=== PATIENT | male | born 1960 | race Caucasian/White ===

== ENCOUNTER 2016-08-19 10:11 | Observation (INO) | payer OTHER ==
[~2016-08-19] VITALS: Ht 162.6 cm; Wt 86.0 kg
[~2016-08-19 10:11] MED LIST: AMOX875T PO; ASPI81TA28 PO; ATOR-14 PO; AZIT250T4 PO; CYAN250T PO; EPP3 IM; HYDR-5688 PO; MODA100T17 PO; NITR0.4S UT; OMEG10007 PO; PRED10TA PO
[2016-08-19 11:16] LABS: HEMATOCRIT 44.2 % (42-52); MEAN CELL VOLUME 88.8 fL (80-100); MEAN CORPUSCULAR HEMOGLOBIN 30.7 pg (25-34); MEAN CORPUSCULAR HGB CONC 34.6 g/dl (32-36); MEAN PLATELET VOLUME 11.3 fL (7.4-10.4); PLATELET COUNT 174 K/uL (130-400); RED BLOOD COUNT 4.98 M/uL (4.7-6.1); WHITE BLOOD COUNT 6.56 K/uL (4.8-10.8)
--- NOTE | 2016-08-19 11:17 | DIAGNOSTIC IMAGING REPORT ---
CHEST ONE VIEW PORTABLE CLINICAL HISTORY: Atypical chest pain COMPARISON STUDY: 11/30/2013 FINDINGS: The cardiac and mediastinal contours are normal. There is no evidence of focal pulmonary consolidation. There is no evidence of failure. No pleural effusions are visualized.[ IMPRESSION: No active disease in the chest. Electronically signed by: Estuardo Reyes M.D. 08/19/2016 11:15 AM Dictated Date/Time: 08/19/2016 11:15 AM
[2016-08-19 11:26] LABS: BUN/CREATININE RATIO 23.8 (10-20); CALCIUM 8.7 mg/dl (8.5-10.1); CREATININE 0.79 mg/dl (0.60-1.40); POTASSIUM 4.4 mmol/L (3.5-5.1)
[2016-08-19 11:31] LABS: ALB/GLOB RATIO 1.1 (0.9-2); CKMB/CK RATIO 2.4 (0-3.0)
[2016-08-19 11:36] LABS: INR 0.9 (0.9-1.1); PROTHROMBIN TIME (PATIENT) 9.6 SECONDS (9.0-12.0)
[2016-08-19] MEDS ORDERED: ATOR10TA88 PO (11:40)
[2016-08-19] MEDS ORDERED: EPP3/2 IM (11:41)
[2016-08-19] MEDS ORDERED: AZITTAB PO (11:42)
[2016-08-19] MEDS ORDERED: PANT40TA PO (11:45)
[2016-08-19] MEDS ORDERED: NITROGLYCERIN 0.4 MG SL PER TAB CHARGE SL PRN (14:30)
[2016-08-19] MEDS ORDERED: ALUMINUM/MAGNESIUM/SIMETH (MAALOX MAX) 30 ML UDC PO PRN (14:30)
[2016-08-19] MEDS ORDERED: ONDANSETRON INJ 2 MG/ML 2 ML VIAL IV PRN (14:30)
[2016-08-19] MEDS ORDERED: EPINEPHRINE ADULT AUTO-INJECT 0.3 MG SYR IM PRN (14:30)
[2016-08-19] MEDS ORDERED: ACETAMINOPHEN 325 MG TAB PO PRN (14:30)
[2016-08-19] MEDS ORDERED: NITROGLYCERIN 0.4 MG SL PER TAB CHARGE UT SCH (14:30)
[2016-08-19] MEDS ORDERED: MoRPHine SULFATE 2 MG/ML CARP IV PRN (14:30)
[2016-08-19] MEDS ORDERED: ATV/1 PO (14:40)
[2016-08-19] MEDS ORDERED: CARV3.122 PO (14:40)
[2016-08-19] MEDS ORDERED: ATOR-22 PO (14:40)
[2016-08-19] MEDS ORDERED: LISI-461 PO (14:40)
[2016-08-19] MEDS ORDERED: LORAZEPAM 1 MG TAB PO PRN (14:45)
[2016-08-19] MEDS ORDERED: IV FLUIDS COMPLETED PRN (15:15)
--- NOTE | 2016-08-19 15:29 | HISTORY & PHYSICAL EXAMINATION ---
DATE OF ADMISSION: 08/19/2016 CHIEF COMPLAINT: Chest pain. HISTORY OF PRESENT ILLNESS: This is a 56-year-old male with past medical history significant for non-ST elevated ID status post stents, history of COPD, tobacco abuse, lung nodules, narcolepsy without cataplexy, history of colon polyps, history of hypertension, hyperlipidemia, history of Pjptlqs-Bkypo-Wabns disease presents with chest pain. The patient says he is not following with doctors. He has not seen a doctor since more than 1 year and he ran out of medications and is not taking those medications. Last night he had some heartburn kind of symptoms, 2 episodes and he went to his family doctor and she was advised to come to the ER. In the ER, EKG shows sinus bradycardia, currently the patient has no chest pain or no heartburn kind of symptoms. Denies any shortness of breath, has dry cough once in a while. No headaches, no blurred vision, no nausea, no vomiting, no dizziness, no sweating. Normal bowel and bladder movements. Appetite is okay. The patient currently is working in [employer] and he walked quite a bit and even after walking and climbing couple of stairs or steps, he did not have any chest pain or shortness of breath. ALLERGIES: AUGMENTIN, BEE VENOM, PENICILLIN G, ADHESIVE TAPE, CHANTIX, PLAVIX, METOPROLOL, CAUSES LOWER HEART RATE, ZOCOR CAUSES MUSCLE PAIN. PAST SURGICAL HISTORY: Carpal tunnel surgery, cardiac catheterization with stent to LAD and a knee surgery. MEDICATIONS: The patient is currently on Provigil 100 mg p.o. daily, lisinopril 10 mg p.o. daily, Coreg 3.125 mg p.o. b.i.d., atorvastatin 20 mg p.o. daily, prednisone rescue kit, azithromycin rescue kit, epinephrine for severe allergic reaction, Protonix 40 mg p.o. daily, nitroglycerin 0.4 mg sublingual p.r.n., aspirin 81 mg p.o. daily, Ativan 1 mg p.o. t.i.d. p.r.n., vitamin B12 250 mcg p.o. daily, omega-3 1000 mg p.o. daily. FAMILY HISTORY: Significant for mother had pancreatic cancer, at the age of 55. Father had MIs in his 70's. Brother had musculoskeletal disorder. Sister has musculoskeletal disorder. SOCIAL HISTORY: Smokes half pack a day for last 35 years. Alcohol occasional. No drug use. REVIEW OF SYMPTOMS: As per HPI. Rest of review of symptoms negative. PHYSICAL EXAMINATION: GENERAL: The patient is of moderate build, not in distress. VITAL SIGNS: Temperature 37, pulse 56, respiratory rate 18, blood pressure 157/100, oxygen 95% room air. HEENT: No pallor, no icterus. Pupils equal, round, and reactive to light. NECK: No JVD, no neck masses, no carotid bruits. CARDIOVASCULAR: S1, S2 heard, regular rate and rhythm, no murmur, no gallop. RESPIRATORY SYSTEM: Normal AP diameter. No accessory muscle use. No wheezing, no crackles. ABDOMEN: Soft, bowel sounds present. Nontender. No distention. CENTRAL NERVOUS SYSTEM: Cranial nerves II-XII grossly intact. Nonfocal. EXTREMITIES: No edema. LABORATORY DATA: WBC 6.5, hemoglobin 15.3, hematocrit 44.2, platelets 174. Sodium 142, potassium 4.4, chloride 106, bicarbonate 27, BUN 19, creatinine 0.7. Serum glucose 93, calcium 8.7, total bilirubin 0.6, AST 18, ALT 36, alkaline phosphatase 75, total creatinine kinase 22. Troponin I less than 0.015. PT 10.6, INR 0.9, IMAGING DATA: Chest x-ray: No acute disease in the chest. EKG: Sinus bradycardia with a rate of 55. No acute ST changes seen. ASSESSMENT AND PLAN: This is a 56-year-old male who presents with chest pain. 1. Chest pain, heartburn kind of symptoms, got resolved now. History of coronary artery disease status post stents, not following with doctors for a long time and ran out of the medications. We will continue his home medications. We will follow serial cardiac enzymes, repeat EKG in the a.m. and follow echocardiogram and cardiology consult for possible stress testing. Monitor on tele floor. 3. History of hypertension. On Coreg and lisinopril. His heart rate is running on the lower side. We will monitor the heart rate while he is on Coreg. Will monitor his blood pressure. 4. History of narcolepsy without cataplexy. Continue his Provigil. 5. History of hyperlipidemia. Continue statin. Follow fasting lipid profile. 6. History of mild chronic obstructive pulmonary disease and tobacco abuse. Currently, stable. 7. Gastroesophageal reflux disease. Continue Protonix. 8. History of lung nodules. Follows with family doctor. 9. Deep vein thrombosis prophylaxis, sequential compression devices and TEDs. 10. Disposition: Observation tele floor. Expect to discharge home and follow with his family doctor. Level 1 full code. MTDD
[2016-08-19 17:34] VITALS: BP 143/93; PULSE 55; TEMP 37; O2SAT 98
[2016-08-19] MEDS: NICOTINE 21 MG/24 HR TDSY TD SCH (17:45)
[2016-08-19] MEDS ORDERED: LISINOPRIL 5 MG TAB PO ONE (17:45)
--- NOTE | 2016-08-19 18:21 | EMERGENCY ROOM VISIT NOTE ---
History Report prepared by Ferny: Tuyet Koenig Under the Supervision of: Dr. Crispin Burns M.D. First contact with patient: 11:27 Chief Complaint: CARDIAC ASSESSMENT Stated Complaint: REFERRED BY DR. BEAN AT [facility] [place] Nursing Triage Summary: Pt states he was sent to ED by her Dr for EKG changes. Pt states he was at Dr for check up to have meds renewed. Pt c/o indigestion, mid epigastric area since last night. Denies CP, denies pain. History of Present Illness The patient is a 56 year old male who presents to the Emergency Room with complaints of intermittent chest pain which started last night. He reports that he went to see Dr. Bean today who referred the patient to the ED for a cardiac assessment. He states that last night when the pain began, he believed it might be indigestion or heartburn. He reports that the pain would come back when he ate food and go away when he drank liquids. He states that he has had multiple heart catheterizations and stents placed. He reports that the pain is similar to his previous chest pain which indicated cardiac issues. He follows up with Dr. Linn of cardiology. He takes baby aspirin and took one UMBRELLA TIPPER MACHINE. Pt denies LOC, headache, fevers, chills, diaphoresis, visual changes, neck pain, breathing difficulties, nausea, vomiting, abdominal pain, back pain, melena, hematochezia, urinary symptoms, numbness, weakness, lymphadenopathy, rash, or other complaints. Source of History: patient Onset: last night Position: chest Timing: intermittent Modifying Factors (Worsening): eating Modifying Factors (Relieving): drinking Review of Systems See HPI for pertinent positives and negatives. A total of ten systems were reviewed and were otherwise negative. Past Medical & Surgical Medical Problems: (1) Acquired hypothyroidism (2) Allergic reaction to bee sting (3) Carpal tunnel syndrome (4) Odrngkk-Rkigp-Xaaiy disease (5) Chest pain (6) Coronary artery disease (7) Hyperlipidemia (8) MYALGIA AND MYOSITIS NOS (9) Placement of stent in coronary artery (10) Tobacco user Family History Cancer Diabetes mellitus Heart disease Hypertension Kidney stones Social History Smoking Status: Current Every Day Smoker Alcohol Use: occasionally Marital Status: Housing Status: lives with family Occupation Status: employed Current/Historical Medications Scheduled Aspirin (Aspirin Ec), 81 MG PO DAILY Atorvastatin (Lipitor), 20 MG PO DAILY Carvedilol (Coreg), 3.125 MG PO BID Cyanocobalamin (Vitamin B-12), 250 MCG PO QAM Fish Oil (Houston-3), 1 CAP PO QAM Lisinopril (Lisinopril), 10 MG PO DAILY Modafinil (Provigil), 100 MG PO DAILY Nitroglycerin (Nitrostat), 0.4 MG UT PRN Pantoprazole (Protonix), 40 MG PO DAILY Prednisone (Prednisone), 10 MG PO UD Scheduled PRN Azithromycin (Zithromax Z-Gareth), 1 PKT PO UD PRN for RESCUE PACK Epinephrine (Epipen), 0.3 MG IM UD PRN for BEE STINGS Lorazepam (Ativan), 1 MG PO TID PRN for Anxiety Allergies Coded Allergies: Adhesives (Verified Allergy, Intermediate, HIVES, 08/19/16) Varenicline (Verified Allergy, Intermediate, PERSONALITY CHANGES, 08/19/16) Clopidogrel (Verified Allergy, Mild, 08/19/16) BEE STING (Verified Allergy, Unknown, 08/19/16) Metoprolol (Verified Allergy, Unknown, LOW HEART RATE, 08/19/16) Simvastatin (Verified Adverse Reaction, Unknown, MUSCLE ACHES JOINT PAIN, 08/19/16) Physical Exam Vital Signs Date Time Temp Pulse Resp B/P Pulse Ox O2 Delivery O2 Flow Rate FiO2 08/19/16 13:45 56 18 157/100 95 Room Air 08/19/16 12:06 51 18 152/91 96 Room Air 08/19/16 10:35 50 08/19/16 10:27 95 Room Air 08/19/16 10:21 98 08/19/16 10:17 37.0 55 16 190/108 98 Room Air Physical Exam GENERAL: Awake, alert, well-appearing, in no distress HENT: Normocephalic, atraumatic. Oropharynx unremarkable. EYES: Normal conjunctiva. Sclera non-icteric. NECK: Supple. No nuchal rigidity. FROM. No JVD. RESPIRATORY: Clear to auscultation. CARDIAC: Bradycardic rate, normal rhythm. Extremities warm and well perfused. Pulses equal. ABDOMEN: Soft, non-distended. No tenderness to palpation. No rebound or guarding. No masses. RECTAL: Deferred. MUSCULOSKELETAL: Chest examination reveals no tenderness. The back is symmetrical on inspection without obvious abnormality. There is no CVA tenderness to palpation. No joint edema. LOWER EXTREMITIES: Calves are equal size bilaterally and non-tender. No edema. No discoloration. NEURO: Normal sensorium. No sensory or motor deficits noted. SKIN: No rash or jaundice noted. Medical Decision & Procedures ER Provider Diagnostic Interpretation: Radiology results as stated below per my review and radiologist interpretation. CHEST ONE VIEW PORTABLE CLINICAL HISTORY: Atypical chest pain COMPARISON STUDY: 11/30/2013 FINDINGS: The cardiac and mediastinal contours are normal. There is no evidence of focal pulmonary consolidation. There is no evidence of failure. No pleural effusions are visualized.[ IMPRESSION: No active disease in the chest. Electronically signed by: Estuardo Reyes M.D. 08/19/2016 11:15 AM Laboratory Results 08/19/16 10:45 08/19/16 10:45 Test 08/19/16 10:45 Red Blood Count 4.98 M/uL (4.7-6.1) Mean Corpuscular Volume 88.8 fL (80-100) Mean Corpuscular Hemoglobin 30.7 pg (25-34) Mean Corpuscular Hemoglobin Concent 34.6 g/dl (32-36) RDW Standard Deviation 39.1 fL (36.4-46.3) RDW Coefficient of Variation 12.2 % (11.5-14.5) Mean Platelet Volume 11.3 fL (7.4-10.4) Prothrombin Time 9.6 SECONDS (9.0-12.0) Prothromb Time International Ratio 0.9 (0.9-1.1) Activated Partial Thromboplast Time 24.8 SECONDS (21.0-31.0) Partial Thromboplastin Ratio 1.0 Anion Gap 9.0 mmol/L (3-11) Est Creatinine Clear Calc Drug Dose 107.3 ml/min Estimated GFR () 118.0 Estimated GFR (Non- 101.8 BUN/Creatinine Ratio 23.8 (10-20) Calcium Level 8.7 mg/dl (8.5-10.1) Total Bilirubin 0.6 mg/dl (0.2-1) Aspartate Amino Transf (AST/SGOT) 18 U/L (15-37) Alanine Aminotransferase (ALT/SGPT) 36 U/L (12-78) Alkaline Phosphatase 75 U/L (45-117) Total Creatine Kinase 222 U/L (39-308) Creatine Kinase MB 5.3 ng/ml (0.5-3.6) Creatine Kinase MB Ratio 2.4 (0-3.0) Troponin I < 0.015 ng/ml (0-0.045) Total Protein 7.1 gm/dl (6.4-8.2) Albumin 3.7 gm/dl (3.4-5.0) Globulin 3.4 gm/dl (2.5-4.0) Albumin/Globulin Ratio 1.1 (0.9-2) Laboratory results reviewed by me ECG Indication: chest pain Rate (beats per minute): 58 Rhythm: sinus bradycardia Findings: no acute ischemic change, no ectopy Comparison ECG Date: Earlier today Change: Sinus bradycardia, rate 51. No ichemia, no ectopy. ED Course 1140: The patient was evaluated in room B8. A complete history and physical exam was performed. 1321: I discussed the patient's case with Dr. Lalo Long Cardiology. He would like to further evaluate the patient for management. 1324: I discussed the patient's case with Dr. Leisa Ahmadi [facility] [place] hospitalist. 1330: Upon reexamination, the patient was resting comfortably. I discussed the test results and treatment plan with him. The patient will be evaluated for further management. Medical Decision Triage Nursing notes reviewed. The patient's presentation and history were concerning for chest pain. Etiologies such as cardiac ischemia, aortic dissection, pulmonary embolism, pneumonia, pneumothorax, musculoskeletal, infections, gastrointestinal, as well as others were entertained. The patient was evaluated. He was feeling well. He is a some dramatic. His CBC, chemistry panel, LFTs and lipase were negative. The patient's troponin was negative. CK MB was mildly elevated. The patient had taken aspirin already today. I did discuss the case with Dr. May of cardiology. He recommended admission to the hospitalist service for further cardiac workup. I discussed this with the patient. He was in agreement. Hospitalist was contacted and evaluated the patient in the emergency from for her management. The chart was completed utilizing [employer] voice recognition software. Grammatical errors, random word insertions, pronoun errors, and incomplete sentences are an occasional consequence of this system due to software limitations, ambient noise, and hardware issues. Any formal questions or concerns about the content, text, or information contained within the body of this dictation should be directly addressed to the physician for clarification. Consults Time Called: 1312 Consulting Physician: Dr. Lalo Long Cardiology Returned Call: 1321 We discussed the patient's case. He would like to further evaluate the patient for management. Additional Consults: Time Called: 1320 Consulted Physician: Dr. Leisa KISER hospitalist. Returned Call: 1324 Additional Comments: We discussed the patient's case. The patient will be evaluated for further management. Impression Primary Impression: Chest pain, precordial Scribe Attestation The scribe's documentation has been prepared under my direction and personally reviewed by me in its entirety. I confirm that the note above accurately reflects all work, treatment, procedures, and medical decision making performed by me. Departure Information Dispostion Being Evaluated By Hospitalist Prescriptions Lorazepam (ATIVAN) 1 Mg Tab 1 MG PO TID Y for Anxiety, #20 TAB Prov: Jovany De La Fuente MD 08/19/16 Atorvastatin (Lipitor) 20 Mg Tab 20 MG PO DAILY for 30 Days, #30 TAB Prov: Jovany De La Fuente MD 08/19/16 Carvedilol (COREG) 3.125 Mg Tab 3.125 MG PO BID for 30 Days, #60 TAB Prov: Jovany De La Fuente MD 08/19/16 Lisinopril (Lisinopril) 10 Mg Tab 10 MG PO DAILY, #30 Prov: Jovany De La Fuente MD 08/19/16 Referrals Chelsy Bean DO (PCP) Patient Instructions My [facility]
[2016-08-19 18:23] VITALS: BP 143/93; PULSE 55; TEMP 37; O2SAT 98; Ht 162.6 cm; Wt 86.0 kg
[2016-08-19 19:38] VITALS: BP 153/85; PULSE 53; TEMP 36.8; O2SAT 95
[2016-08-19] MEDS: CARVEDILOL 3.125 MG TAB PO SCH (20:31)
[2016-08-19 23:15] VITALS: BP 119/74; PULSE 45; TEMP 36.6; O2SAT 95
[2016-08-20 04:00] VITALS: BP 116/75; PULSE 51; TEMP 36.4; O2SAT 92
[2016-08-20 05:48] LABS: BASO % 0.5 %; BASO ABS # 0.03 K/uL (0-0.2); COMPLETE YES; EOS % 2.2 %; HEMATOCRIT 43.4 % (42-52); IG% 0.5 %; LYMPH % 35.7 %; LYMPH ABS # 2.25 K/uL (1.2-3.4); MEAN CELL VOLUME 88.9 fL (80-100); MEAN CORPUSCULAR HEMOGLOBIN 30.5 pg (25-34); MEAN CORPUSCULAR HGB CONC 34.3 g/dl (32-36); MEAN PLATELET VOLUME 11.4 fL (7.4-10.4); MONO % 5.9 %; NEUT % 55.2 %; PLATELET COUNT 160 K/uL (130-400); RED BLOOD COUNT 4.88 M/uL (4.7-6.1); WHITE BLOOD COUNT 6.31 K/uL (4.8-10.8)
[2016-08-20 06:22] LABS: BUN/CREATININE RATIO 29.8 (10-20); CALCIUM 8.7 mg/dl (8.5-10.1); CREATININE 0.79 mg/dl (0.60-1.40); MAGNESIUM 2.2 mg/dl (1.8-2.4); POTASSIUM 4.3 mmol/L (3.5-5.1)
[2016-08-20 06:47] LABS: ESTIMATED AVERAGE GLUCOSE 111 mg/dl; HA1C FLAG Normal (Normal)
[2016-08-20 07:27] VITALS: BP 118/75; PULSE 54; TEMP 36.4; O2SAT 98
[2016-08-20] MEDS: CARVEDILOL 3.125 MG TAB PO SCH (08:17)
[2016-08-20] MEDS: NICOTINE 21 MG/24 HR TDSY TD SCH (08:24)
[2016-08-20] MEDS ORDERED: PANTOprazole SOD 40 MG TAB PO SCH (09:00)
[2016-08-20] MEDS ORDERED: MODAFINIL 100 MG TAB PO SCH (09:00)
[2016-08-20] MEDS ORDERED: CYANOCOBALAMIN 500 MCG TAB (VIT B-12) PO SCH (09:00)
[2016-08-20] MEDS ORDERED: LISINOPRIL 10 MG TAB PO SCH (09:00)
[2016-08-20] MEDS ORDERED: ATORVASTATIN 20 MG TAB PO SCH (09:00)
[2016-08-20] MEDS ORDERED: ASPIRIN 81 MG ECTAB PO SCH (09:00)
[2016-08-20] MEDS ORDERED: PERFLUTREN LIPID MICROSPHERE (DEFINITY) IV ONE ×2 (09:27→10:35)
--- NOTE | 2016-08-20 11:45 | ECHOCARDIOGRAM REPORT ---
*NOTICE TO RECEIVING REPUBLICAN AGENCY This information is strictly Confidential and protected under [place] law. [place] law prohibits you from making any further disclosure of this information unless further disclosure is expressly permitted by the written consent of the person to whom it pertains or is authorized by law. A general authorization for the release of medical or other information is not sufficient for this purpose. Hospital accepts no responsibility if the information is made available to any other person, INCLUDING THE PATIENT. Interpretation Summary * Name: MEGHANA SMITH Study Date: 08/20/2016 08:45 AM BP: 118/75 mmHg * Patient Location: [id number] HR: 54 * : 1960 (M/d/yyyy) Gender: Male Height: 64 in * Age: 56 yrs Ethnicity: [place] Weight: 195 lb * Ordering Physician: Saúl May * Referring Physician: Self, Referred * Performed By: Alexander Martin RCS * * Reason For Study: Chest Pain * BSA: 1.9 m2 * -- Conclusions -- * The left ventricular wall motion is normal. * There is borderline concentric left ventricular hypertrophy. * The LV Ejection Fraction = 60-65%. * There is no significant valvular pathology. * Diastolic dysfunction, Grade II (pseudonormalization pattern). Procedure Details * A complete two-dimensional transthoracic echocardiogram was performed (2D, M-mode, Doppler and color flow Doppler). * A contrast injection of Definity was performed to improve assessment of LV function. * Contrast was injected into an intravenous site in the left arm. * One vial of Definity ultrasound contrast was diluted in normal saline to a total volume of 10 ml. A total of '2' ml of solution was administered during imaging. * Lot # [id number] of Definity utilized for procedure. * Expiration date . * The attending nurse who injected the contrast agent was John Lopez RN. Left Ventricle * The left ventricle is normal in size. * There is borderline concentric left ventricular hypertrophy. * Left ventricular systolic function is normal. * Ejection Fraction = 60-65%. * The left ventricular wall motion is normal. Right Ventricle * The right ventricle is normal size. * The right ventricular systolic function is normal as assessed by tricuspid annular plane systolic excursion (TAPSE) (normal >1.5 cm). Atria * The left atrial size is normal. * Right atrial size is normal. * There is no evidence of atrial septal defect, but resolution does not allow assessment for a patent foramen ovale. Mitral Valve * The mitral valve is normal. * There is no mitral valve stenosis. * Significant mitral regurgitation is absent. Tricuspid Valve * The tricuspid valve is normal. * There is no tricuspid stenosis. * Significant tricuspid regurgitation is absent. Aortic Valve * The aortic valve is trileaflet. * Aortic stenosis is absent. * There is no significant aortic regurgitation. Pulmonic Valve * The pulmonary valve is not well seen, but the Doppler examination is normal without significant regurgitation or stenosis. Great Vessels * The aortic root and proximal ascending aorta are normal sized. Pericardium/Pleural * There is no pericardial effusion. Great Vessels * Normal inferior vena cava diameter and respiratory variation suggests normal central venous pressure. Left Ventricular Diastolic Function * Diastolic dysfunction, Grade II (pseudonormalization pattern). MMode 2D Measurements and Calculations IVSd 1.1 cm IVSs 1.4 cm LVIDd 5.2 cm LVIDs 2.4 cm LVPWd 1.1 cm LVPWs 1.5 cm IVS/LVPW 0.98 FS 53.8 % EDV(Teich) 127.5 ml ESV(Teich) 19.9 ml EF(Teich) 84.4 % EDV(cubed) 137.8 ml ESV(cubed) 13.6 ml EF(cubed) 90.1 % % IVS thick 29.8 % % LVPW thick 30.3 % LV mass(C)d 225.5 grams LV mass(C)dI 116.5 grams/m\S\2 LV mass(C)s 114.3 grams LV mass(C)sI 59.1 grams/m\S\2 CO(Teich) 5.6 l/min CI(Teich) 2.9 l/min/m\S\2 SV(Teich) 107.6 ml SI(Teich) 55.6 ml/m\S\2 CO(cubed) 6.5 l/min CI(cubed) 3.3 l/min/m\S\2 SV(cubed) 124.1 ml SI(cubed) 64.2 ml/m\S\2 Ao root diam 3.6 cm Ao root area 10.0 cm\S\2 ACS 1.8 cm LA dimension 3.8 cm LA/Ao 1.1 LVAd ap4 34.7 cm\S\2 LVLd ap4 8.5 cm EDV(MOD-sp4) 117.0 ml LVAs ap4 16.8 cm\S\2 LVLs ap4 6.3 cm ESV(MOD-sp4) 38.0 ml EF(MOD-sp4) 67.5 % LVAd ap2 32.0 cm\S\2 LVLd ap2 8.7 cm EDV(MOD-sp2) 97.0 ml LVAs ap2 13.0 cm\S\2 LVLs ap2 6.2 cm ESV(MOD-sp2) 23.0 ml EF(MOD-sp2) 76.3 % CO(MOD-sp4) 4.1 l/min CI(MOD-sp4) 2.1 l/min/m\S\2 SV(MOD-sp4) 79.0 ml SI(MOD-sp4) 40.8 ml/m\S\2 CO(MOD-sp2) 3.8 l/min CI(MOD-sp2) 2.0 l/min/m\S\2 SV(MOD-sp2) 74.0 ml SI(MOD-sp2) 38.2 ml/m\S\2 Doppler Measurements and Calculations MV E max dsaha 78.5 cm/sec MV A max dasha 63.2 cm/sec MV E/A 1.2 MV P1/2t max dasha 100.8 cm/sec MV P1/2t 80.4 msec MVA(P1/2t) 2.7 cm\S\2 MV dec slope 366.9 cm/sec\S\2 MV dec time 0.29 sec Ao V2 max 149.3 cm/sec Ao max PG 8.9 mmHg Ao max PG (full) 3.9 mmHg LV V1 max PG 5.0 mmHg LV V1 max 111.6 cm/sec PA V2 max 145.0 cm/sec PA max PG 8.4 mmHg TR max dasha 222.0 cm/sec
--- NOTE | 2016-08-20 12:00 | EXERCISE STRESS ECHO ---
*NOTICE TO RECEIVING DEMOCRAT AGENCY This information is strictly Confidential and protected under [place] law. [place] law prohibits you from making any further disclosure of this information unless further disclosure is expressly permitted by the written consent of the person to whom it pertains or is authorized by law. A general authorization for the release of medical or other information is not sufficient for this purpose. Hospital accepts no responsibility if the information is made available to any other person, INCLUDING THE PATIENT. Interpretation Summary * Name: MEGHANA SMITH Study Date: 08/20/2016 10:15 AM BP: 116/58 mmHg * Patient Location: [facility]\S\[id number]\S\2 HR: 57 * : 1960 (M/d/yyyy) Gender: Male Height: 64 in * Age: 56 yrs Ethnicity: [place] Weight: 189 lb * Ordering Physician: Saúl May * Referring Physician: Self, Referred * Performed By: Alexander Martin RCS * * Reason For Study: Chest Pain * BSA: 1.9 m2 * -- Conclusions -- * STRESS STUDY: * The stress echocardiogram is abnormal and suggestive of ischemia. * The heart rate response to exercise was attenuated with resting sinus bradycardia noted. * Ischemic ECG changes were noted as described below with associated left sided chest pressure. * The exercise test was terminated due to fatigue, chest pain, and ischemic ECG changes. * No LV segmental wall motion abnormalities were noted at rest. * There is a moderate sized apical and apical inferior wall motion abnormality with hypokinesis to dyskinesis of the segments on the stress images. * The patient's symptoms and ECG changes resolved early in the post exercise recovery interval. * He was transferred from the cardiopulmonary department back to telemetry in stable condition with resolution of his angina and normalization of the ECG. Procedure Details * ECHOEX, CPT #84878 * A contrast injection of Definity was performed to improve assessment of LV function. * Contrast was injected into an intravenous site in the left arm. * One vial of Definity ultrasound contrast was diluted in normal saline to a total volume of 10 ml. A total of '4' ml of solution was administered during imaging. * Lot # [id number] of Definity utilized for procedure. * Expiration date . * The attending nurse who injected the contrast agent was John Lopez RN. Left Ventricle * The left ventricle is normal in size. * No LV segmental wall motion abnormalities were noted at rest. There is a moderated sized apical and apical inferior wall motion abnormality with hypokinesis to dyskinesis of the segments on the stress images. * There is borderline concentric left ventricular hypertrophy. * Left ventricular systolic function is normal. * Ejection Fraction = 60-65%. Stress Parameters * The baseline ECG revealed sinus bradycardia with normal ST segments. * The stress ECG was abnormal with 1.[address] segment depresion in the inferior and lateral leads. Occasional PVCs were noted on the stress ECG. * The stress portion of this study was personally supervised by the undersigned interpreting physician. * Rest heart rate was '57' BPM. * Rest blood pressure was '116/58' * Maximum heart rate achieved was 112 bpm. * Maximum heart rate was 67 % of maximum age-predicted heart rate. * Maximum blood pressure was '184/88' * Total exercise time was '4:37' * Maximum exercise MET level achieved was '6.5' METS * Maximum treadmill speed was '2.5' miles per hour. * Maximum treadmill elevation was '12'% grade. * Exercise was terminated due to 'symptoms' * Normal blood pressure response to exercise.
[2016-08-20 12:07] VITALS: BP 144/83; PULSE 63; TEMP 36.2; O2SAT 100
--- NOTE | 2016-08-20 12:12 | CARDIOLOGY CONSULTATION ---
DATE OF CONSULTATION: 08/20/2016 HISTORY OF PRESENT ILLNESS: Jin Bhandari is a 56-year-old male seen in cardiology consultation per the request of Dr. De La Fuente for the evaluation of chest discomfort. The patient's primary care provider is Dr. Chelsy Bean at [facility]. He is followed with Dr. Justice Linn of our cardiology practice in the past with most recent outpatient visit having taken place in March 2015. The patient has a history of complex coronary heart disease with prior percutaneous coronary intervention and stenting at the left anterior descending and the diagonal branch in 2003 and subsequent repeat intervention in 2011 for thrombotic narrowing of the LAD and diagonal. In 2014, he was hospitalized at [facility] with an acute thrombotic closure of the proximal LAD and had an acute anterior wall myocardial infarction. His ejection fraction had normalized in the interim time, as noted on his resting echocardiogram today. When he was seen in March 2015, he was on dual antiplatelet therapy, receiving aspirin as well as Effient. He states that he completed a 1-year course of Effient and is now on aspirin monotherapy. He ran out of his medications several days ago, and has been out of his cardiac medications for a little bit less than a week, but he has not missed any doses of aspirin. He states that he was sitting on his sofa, watching television several evenings ago and had abrupt onset midline pressure that felt as though it may have been indigestion or heartburn, he could feel an acid like taste in his mouth. This persisted for a quite some time. He made an appointment with his primary care doctor and had recurrence of the symptoms yesterday. He was thus referred for evaluation in the Emergency Room. Initial EKG as well as repeat EKG today revealed sinus bradycardia with no acute ST changes, poor R-wave progression was noted consistent with possible age undetermined anterior myocardial infarction. His cardiac enzymes were negative overnight. This morning, the patient states he has had no residual chest discomfort at rest. PAST MEDICAL HISTORY: 1. Coronary artery disease with complex LAD diagonal intervention on 3 separate occasions, 2003, 2011 and 2014. 2. COPD. 3. Ongoing cigarette smoking. 4. Lung nodules. 5. 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 6. Colon polyps. 7. History of hypertension. 8. Dyslipidemia. 9. History of Hcdxpfr-Xedpm-Xlpod disease. PAST SURGICAL HISTORY: 1. Cardiac catheterization x3 as noted above. 2. Carpal tunnel surgery. 3. Left knee surgery. SOCIAL HISTORY: The patient continues to smoke. He smokes one-half pack of cigarettes per day for the last 35 years. He drinks occasional alcohol, but not daily. He is and lives with his family. FAMILY HISTORY: Significant for mother with pancreatic cancer, who at age 55. Father had myocardial infarctions in his 70s. COMPREHENSIVE REVIEW OF SYSTEMS: Negative with the exception of that above. PHYSICAL EXAMINATION: VITAL SIGNS: Temperature 36.4, heart rate 54, blood pressure 118/74, pulse oximetry 98% on room air. GENERAL APPEARANCE: Awake and oriented x3, in no acute distress. HEENT: Extraocular muscles were intact. Pupils equal and reactive to light. NECK: No bruits or cervical lymphadenopathy. CARDIOVASCULAR: Regular rate. No murmurs, rubs or gallops. ABDOMEN: Positive bowel sounds. Soft, nontender, and nondistended. EXTREMITIES: No clubbing, cyanosis or edema. NEUROLOGIC: No focal deficits. ALLERGIES: 1. AMOXICILLIN. 2. BEE VENOM. 3. LISINOPRIL WITH HIVES. 4. PENICILLIN G. 5. ADHESIVE TAPE. 6. INTOLERANCE TO CHANTIX WITH PERSONALITY CHANGES. 7. PLAVIX WITH PAST HIVES. 8. HE HAS BEEN INTOLERANT TO METOPROLOL DUE TO SLOW HEART RATE IN THE PAST. 9. SIMVASTATIN. HOME MEDICATIONS: 1. Atorvastatin 20 mg daily. 2. Aspirin 81 mg daily. 3. Ativan 1 mg 3 times per day as needed for anxiety. 4. Epinephrine auto injector as needed for allergic reaction. 5. Lisinopril 10 mg by mouth daily. 6. Provigil 100 mg 1 tablet by mouth daily. 7. Guinda 3 fatty acid. 8. Protonix. 9. Recent represcribed prednisone rescue kit. He is not currently taking this. DIAGNOSTIC DATA: Resting EKG x2 was negative. Troponin on arrival was negative and no troponin was repeated this morning. STRESS ECHOCARDIOGRAM: The patient exercised into stage II of standard Tani protocol with reproduction of his left-sided chest discomfort and associated EKG changes suggestive of ischemia. His postexercise images revealed a new wall motion abnormality of the apical inferior wall as well as the apex. His EKG changes and symptoms resolved early in the post-exercise recovery interval. FINAL IMPRESSION: A 56-year-old male with, 1. Unstable angina, abnormal exercise stress echo. 2. History of coronary artery disease with complex bifurcating lesion of the LAD diagonal, for which he has undergone intervention on 3 separate occasions past thrombotic occlusion of the LAD. Most recent of which took place at [facility] in 2014. 3. HISTORY OF CLOPIDOGREL ALLERGY, WITH HIVES. After his last PCI, he had been treated with Effient. 4. Dyslipidemia. 5. Sinus bradycardia. 6. Ongoing cigarette smoking. RECOMMENDATIONS: The patient had a single troponin available on his chart that took place yesterday that was drawn yesterday in the Emergency Department. The patient was assessed personally when he was in the cardiopulmonary department this morning having his resting echocardiogram performed. He was completely free of chest discomfort upon presentation this morning and is resting echo revealed normal resting wall motion. His symptoms as he described them sound as though they may have been GI in etiology, we proceeded with an exercise stress echocardiogram, however and he described a left-sided chest discomfort with associated EKG changes and subsequently wall motion abnormality was noted. The patient has been transferred from the cardiopulmonary department back to telemetry. Unfractionated heparin infusion is going to be initiated. His carvedilol had been held due to bradycardia overnight and during his time in the cardiopulmonary, his resting heart rate was in the low 50s, and therefore I am going to just hold his beta katelyn for now. Aspirin is going to be continued. The patient is agreeable to proceeding with cardiac catheterization, which will be scheduled for tomorrow. Atorvastatin will be continued. Lisinopril will be continued. He is on Provigil, but this sounds like a medication that although is not ideal from a cardiac perspective, is necessary due to his history of narcolepsy. DEEP
[2016-08-20] MEDS ORDERED: HEPARIN 25,000 UNIT/500ML D5W 500 ML IV PRN (14:00)
[2016-08-20] MEDS ORDERED: HEPARIN IV BOLUS 6,000 UNIT in SYRINGE 0 ML IV ONE (14:00)
--- NOTE | 2016-08-20 14:23 | Cardiology Progress Note ---
Cardiology Progress Note Date of Service Aug 20, 2016. Cardiology Progress Note I followed up with patient on the telemetry floor. Patient feeling well. Follow up troponin is negative. Patient elects to have cardiac catheterization at a tertiary center instead of here. He has a history of complex LAD disease, involving the LAD and diagonal. In 2011 he was found to have in stent restenosis at that site on a diagnostic cardiac catheterization at [facility] prompting transfer to [facility] for complex high risk PCI. Pt would like to have his cardiac cath at [facility] instead, and I think this is appropriate. I discussed his case with Dr Willard Barrett of cardiology at [facility], who accepted the patient in transfer pending bed availability. Pt to be transferred by ACLS ground. Discussed with Dr Layton of Hospitalist service. Linda May DO
--- NOTE | 2016-08-20 14:43 | Progress Note ---
Subjective Date of Service: Aug 20, 2016. Subjective Pt evaluation today including: conversation w/ patient, physical exam, chart review, lab review, review of studies, conversation w/ sec reporting consultant, review of inpatient medication list Saw/examined the patient in room 289 Had a stress echo done earlier today - failed; developed chest pain and EKG changes IV heparin initiated, aspirin, statin continued b-katelyn held due to slight bradycardia I saw patient today after cath, he is doing fine, chest pain resolved while at rest Has had to be life flighted in the past to [place] while having cardiac cath done here - so would like to be transferred to [place] for cardiac cath Problem List Medical Problems: (1) Chest pain, precordial Status: Acute Review of Systems Constitutional: No chills, No fever Respiratory: No cough, No shortness of breath, No sputum Cardiac: No chest pain (resolved at rest), No edema, No palpitations Abdomen: No diarrhea, No nausea, No pain, No vomiting Male : No dysuria, No urinary frequency Heme: No abnormal bleeding/bruising Medications Current Inpatient Medications Medications (Trade) Dose Ordered Sig/Raj Route Start Time Stop Time Status Last Admin Dose Admin Acetaminophen (Tylenol Tab) 650 mg Q4H PRN PO 08/19/16 14:30 09/18/16 14:29 Al Hydrox/Mg Hydrox/Simethicone (Maalox Max Susp) 15 ml Q4H PRN PO 08/19/16 14:30 09/18/16 14:29 Ondansetron HCl (Zofran Inj) 4 mg Q6H PRN IV 08/19/16 14:30 09/18/16 14:29 Nitroglycerin (Nitrostat Tab) 0.4 mg UD PRN SL 08/19/16 14:30 09/18/16 14:29 Morphine Sulfate (MoRPHine SULFATE INJ) 2 mg Q30M PRN IV 08/19/16 14:30 09/02/16 14:29 Aspirin (Ecotrin Tab) 81 mg DAILY PO 08/20/16 09:00 09/19/16 08:59 08/20/16 08:19 81 MG Epinephrine (Epipen) 0.3 mg UD PRN IM 08/19/16 14:30 09/18/16 14:29 Modafinil (proVIGIL TAB) 100 mg DAILY PO 08/20/16 09:00 09/19/16 08:59 08/20/16 08:24 100 MG Pantoprazole Sodium (Protonix Tab) 40 mg DAILY PO 08/20/16 09:00 09/19/16 08:59 08/20/16 08:18 40 MG Atorvastatin Calcium (Lipitor Tab) 20 mg DAILY PO 08/20/16 09:00 09/19/16 08:59 08/20/16 08:18 20 MG Cyanocobalamin (Vitamin B-12 Tab) 250 mcg QAM PO 08/20/16 09:00 09/19/16 08:59 08/20/16 08:19 250 MCG Lisinopril (Zestril Tab) 10 mg DAILY PO 08/20/16 09:00 09/19/16 08:59 08/20/16 08:18 10 MG Lorazepam (Ativan Tab) 1 mg TID PRN PO 08/19/16 14:45 09/18/16 14:44 Nicotine (Nicoderm Cq 21MG Patch) 1 patch QAM TD 08/19/16 17:45 09/18/16 17:44 Miscellaneous (Remove Nicoderm Patch) 1 ea HS N/A 08/19/16 21:00 09/18/16 20:59 Miscellaneous 1 ea 1 ea PRN PRN N/A 08/19/16 15:15 08/19/17 15:14 Sodium Chloride (Nss 1000ml) 1,000 ml @ 75 mls/hr [id number] IV 08/20/16 21:00 09/19/16 20:59 Aspirin 324 mg 324 mg ONE PO 08/21/16 07:00 08/21/16 18:00 Heparin Sodium/ Dextrose (Heparin 25,000 Unit/500ml D5W) 500 ml @ 25 mls/hr Q20H PRN IV 08/20/16 14:00 09/19/16 13:59 08/20/16 14:20 25 MLS/HR Objective Vital Signs Date Time Temp Pulse Resp B/P Pulse Ox O2 Delivery O2 Flow Rate FiO2 08/20/16 12:07 36.2 63 18 144/83 100 Room Air 08/20/16 07:27 36.4 54 16 118/75 98 Room Air 08/20/16 07:25 Room Air 08/20/16 04:00 Room Air 08/20/16 04:00 36.4 51 16 116/75 92 Room Air 08/20/16 00:00 Room Air 08/19/16 23:15 36.6 45 18 119/74 95 Room Air 08/19/16 20:00 Room Air 08/19/16 19:38 36.8 53 18 153/85 95 Room Air 08/19/16 18:23 37.0 55 22 143/93 98 Room Air 08/19/16 17:34 37.0 55 22 143/93 98 Room Air 08/19/16 16:45 52 18 129/76 96 Room Air 08/19/16 15:37 49 18 142/80 95 Room Air 08/19/16 14:38 56 Physical Exam General Appearance: no apparent distress, + obese Respiratory/Chest: lungs clear, normal breath sounds, no respiratory distress, no accessory muscle use Cardiovascular: no edema, no murmur, + bradycardia Abdomen: normal bowel sounds, non tender, soft Extremities: normal inspection, no pedal edema Neurologic/Psychiatric: no motor/sensory deficits, alert, normal mood/affect, oriented x 3 Skin: normal color Lymphatic: no adenopathy Laboratory Results Last 24 Hours Test 08/20/16 05:20 08/20/16 12:30 White Blood Count 6.31 K/uL Red Blood Count 4.88 M/uL Hemoglobin 14.9 g/dL Hematocrit 43.4 % Mean Corpuscular Volume 88.9 fL Mean Corpuscular Hemoglobin 30.5 pg Mean Corpuscular Hemoglobin Concent 34.3 g/dl Platelet Count 160 K/uL Mean Platelet Volume 11.4 fL Neutrophils (%) (Auto) 55.2 % Lymphocytes (%) (Auto) 35.7 % Monocytes (%) (Auto) 5.9 % Eosinophils (%) (Auto) 2.2 % Basophils (%) (Auto) 0.5 % Neutrophils # (Auto) 3.49 K/uL Lymphocytes # (Auto) 2.25 K/uL Monocytes # (Auto) 0.37 K/uL Eosinophils # (Auto) 0.14 K/uL Basophils # (Auto) 0.03 K/uL RDW Standard Deviation 39.6 fL RDW Coefficient of Variation 12.3 % Immature Granulocyte % (Auto) 0.5 % Immature Granulocyte # (Auto) 0.03 K/uL Sodium Level 141 mmol/L Potassium Level 4.3 mmol/L Chloride Level 107 mmol/L Carbon Dioxide Level 27 mmol/L Anion Gap 7.0 mmol/L Blood Urea Nitrogen 24 mg/dl Creatinine 0.79 mg/dl Est Creatinine Clear Calc Drug Dose 105.7 ml/min Estimated GFR () 118.0 Estimated GFR (Non- 101.8 BUN/Creatinine Ratio 29.8 Random Glucose 93 mg/dl Estimated Average Glucose 111 mg/dl Hemoglobin A1c 5.5 % Calcium Level 8.7 mg/dl Magnesium Level 2.2 mg/dl Lipase 137 U/L Hepatitis C Antibody Screen NEG Troponin I 0.017 ng/ml Assessment and Plan This is a 56 year old male with PMH of CAD s/p stenting x 3, HTN, HLD, COPD/ tobacco use disorder, lung nodules presents with chest pain Chest Pain CAD s/p PCI x 3 failed stress echo today, developed chest pain/EKG changes during stress has had PCI in the past, complex coronary disease to the LAD and diagonal had been on aspirin and Effient x 1 year Ran out of his medications about one week ago, but states he still took aspirin daily after failed stress - was started on IV heparin appreciate cardiology input - spoke with Dr. May - patient requests wanting to be transferred to [facility] Has had a cardiac cath here, a complex disease which required him to be life- flighted to [place] in the past will transfer to accepting doctor - Dr. Willard Barrett IV heparin en route, continue aspirin, statin b-katelyn held due to bradycardia Noted Plavix allergy COPD at baseline ongoing tobacco use; nicotine patch HTN blood pressure stable hold b-katelyn due to bradycardia continue other medications as listed HLD continue statin therapy DVT ppx IV heparin FULL CODE transfer today to [facility] for cardiac cath at tertiary center Discharge planning: acute transfer
--- NOTE | 2016-08-20 14:45 | Discharge Instructions ---
Discharge Instructions Admission Reason for Admission: Chest Pain Discharge Discharge Diagnosis / Problem: CAD; chest pain Discharge Goals Goal(s): Decrease discomfort, Improve function, Diagnostic testing, Therapeutic intervention Activity Recommendations Activity Limitations: resume your previous activity . Instructions / Follow-Up Instructions / Follow-Up Patient to be transferred acutely to [facility] for cardiac cath at tertiary center He will be transferred by ALS - IV heparin en route Current Hospital Diet Patient's current hospital diet: AHA Diet (Heart Healthy) Discharge Diet Recommended Diet: AHA Diet (Heart Healthy) Pending Studies Studies pending at discharge: no Laboratory Results Hemoglobin A1c Test 08/20/16 05:20 Range/Units Estimated Average Glucose 111 mg/dl Hemoglobin A1c 5.5 4.5-5.6 % Medical Emergencies . Who to Call and When: Medical Emergencies: If at any time you feel your situation is an emergency, please call 911 immediately. . Non-Emergent Contact Non-Emergency issues call your: Primary Care Provider, [employer] . . "Provider Documentation" section prepared by Ade Ricks. VTE Core Measure Inpt VTE Proph given/why not?: Other Anticoagulation (IV heparin)
--- NOTE | 2016-08-20 14:46 | Discharge Summary ---
Discharge Summary Date of Service Aug 20, 2016. Discharge Summary Admission Date: Aug 19, 2016 at 14:37 Discharge Date: Aug 20, 2016 Discharge Disposition: Acute care facility Principal Diagnosis: CAD, chest pain failed stress echo Medication Reconciliation Continued Medications: Aspirin (Aspirin Ec) 81 Mg Tab 81 MG PO DAILY Atorvastatin (Lipitor) 20 Mg Tab 20 MG PO DAILY for 30 Days, #30 TAB Cyanocobalamin (Vitamin B-12) 250 Mcg Tab 250 MCG PO QAM, 0 Refills Epinephrine (Epipen) 0.3 Mg/0.3 Ml Inj 0.3 MG IM UD PRN for BEE STINGS, BOX Fish Oil ([place]-3) 1 Ea Cap 1 CAP PO QAM, 0 Refills Lisinopril (Lisinopril) 10 Mg Tab 10 MG PO DAILY, #30 Lorazepam (Ativan) 1 Mg Tab 1 MG PO TID PRN for Anxiety, #20 TAB Modafinil (Provigil) 100 Mg Tab 100 MG PO DAILY, TAB Nitroglycerin (Nitrostat) 0.4 Mg Sub 0.4 MG UT PRN Pantoprazole (Protonix) 40 Mg Tab 40 MG PO DAILY, #30 TAB Discontinued Medications: Azithromycin (Zithromax Z-Gareth) 250 Mg Tab 1 PKT PO UD PRN for RESCUE PACK, #1 PKT Carvedilol (Coreg) 3.125 Mg Tab 3.125 MG PO BID for 30 Days, #60 TAB Prednisone (Prednisone) 10 Mg Tab 10 MG PO UD, 0 Refills RESCUE DRUG.tAKE DIRECTED Admission Information Physical Exam (per Admitting): DATE OF ADMISSION: 08/19/2016 CHIEF COMPLAINT: Chest pain. HISTORY OF PRESENT ILLNESS: This is a 56-year-old male with past medical history significant for non-ST elevated PR status post stents, history of COPD, tobacco abuse, lung nodules, narcolepsy without cataplexy, history of colon polyps, history of hypertension, hyperlipidemia, history of Pbanepq-Fqkdd-Irfpq disease presents with chest pain. The patient says he is not following with doctors. He has not seen a doctor since more than 1 year and he ran out of medications and is not taking those medications. Last night he had some heartburn kind of symptoms, 2 episodes and he went to his family doctor and she was advised to come to the ER. In the ER, EKG shows sinus bradycardia, currently the patient has no chest pain or no heartburn kind of symptoms. Denies any shortness of breath, has dry cough once in a while. No headaches, no blurred vision, no nausea, no vomiting, no dizziness, no sweating. Normal bowel and bladder movements. Appetite is okay. The patient currently is working in [facility] and he walked quite a bit and even after walking and climbing couple of stairs or steps, he did not have any chest pain or shortness of breath. ALLERGIES: AUGMENTIN, BEE VENOM, PENICILLIN G, ADHESIVE TAPE, CHANTIX, PLAVIX, METOPROLOL, CAUSES LOWER HEART RATE, ZOCOR CAUSES MUSCLE PAIN. PAST SURGICAL HISTORY: Carpal tunnel surgery, cardiac catheterization with stent to LAD and a knee surgery. MEDICATIONS: The patient is currently on Provigil 100 mg p.o. daily, lisinopril 10 mg p.o. daily, Coreg 3.125 mg p.o. b.i.d., atorvastatin 20 mg p.o. daily, prednisone rescue kit, azithromycin rescue kit, epinephrine for severe allergic reaction, Protonix 40 mg p.o. daily, nitroglycerin 0.4 mg sublingual p.r.n., aspirin 81 mg p.o. daily, Ativan 1 mg p.o. t.i.d. p.r.n., vitamin B12 250 mcg p.o. daily, omega-3 1000 mg p.o. daily. FAMILY HISTORY: Significant for mother had pancreatic cancer, at the age of 55. Father had MIs in his 70's. Brother had musculoskeletal disorder. Sister has musculoskeletal disorder. SOCIAL HISTORY: Smokes half pack a day for last 35 years. Alcohol occasional. No drug use. REVIEW OF SYMPTOMS: As per HPI. Rest of review of symptoms negative. PHYSICAL EXAMINATION: GENERAL: The patient is of moderate build, not in distress. VITAL SIGNS: Temperature 37, pulse 56, respiratory rate 18, blood pressure 157/100, oxygen 95% room air. HEENT: No pallor, no icterus. Pupils equal, round, and reactive to light. NECK: No JVD, no neck masses, no carotid bruits. CARDIOVASCULAR: S1, S2 heard, regular rate and rhythm, no murmur, no gallop. RESPIRATORY SYSTEM: Normal AP diameter. No accessory muscle use. No wheezing, no crackles. ABDOMEN: Soft, bowel sounds present. Nontender. No distention. CENTRAL NERVOUS SYSTEM: Cranial nerves II-XII grossly intact. Nonfocal. EXTREMITIES: No edema. LABORATORY DATA: WBC 6.5, hemoglobin 15.3, hematocrit 44.2, platelets 174. Sodium 142, potassium 4.4, chloride 106, bicarbonate 27, BUN 19, creatinine 0.7. Serum glucose 93, calcium 8.7, total bilirubin 0.6, AST 18, ALT 36, alkaline phosphatase 75, total creatinine kinase 22. Troponin I less than 0.015. PT 10.6, INR 0.9, IMAGING DATA: Chest x-ray: No acute disease in the chest. EKG: Sinus bradycardia with a rate of 55. No acute ST changes seen. ASSESSMENT AND PLAN: This is a 56-year-old male who presents with chest pain. 1. Chest pain, heartburn kind of symptoms, got resolved now. History of coronary artery disease status post stents, not following with doctors for a long time and ran out of the medications. We will continue his home medications. We will follow serial cardiac enzymes, repeat EKG in the a.m. and follow echocardiogram and cardiology consult for possible stress testing. Monitor on tele floor. 3. History of hypertension. On Coreg and lisinopril. His heart rate is running on the lower side. We will monitor the heart rate while he is on Coreg. Will monitor his blood pressure. 4. History of narcolepsy without cataplexy. Continue his Provigil. 5. History of hyperlipidemia. Continue statin. Follow fasting lipid profile. 6. History of mild chronic obstructive pulmonary disease and tobacco abuse. Currently, stable. 7. Gastroesophageal reflux disease. Continue Protonix. 8. History of lung nodules. Follows with family doctor. 9. Deep vein thrombosis prophylaxis, sequential compression devices and TEDs. 10. Disposition: Observation tele floor. Expect to discharge home and follow with his family doctor. Level 1 full code. Hospital Course This is a 56 year old male with PMH of CAD s/p stenting x 3, HTN, HLD, COPD/ tobacco use disorder, lung nodules presents with chest pain Chest Pain CAD s/p PCI x 3 failed stress echo today, developed chest pain/EKG changes during stress has had PCI in the past, complex coronary disease to the LAD and diagonal had been on aspirin and Effient x 1 year Ran out of his medications about one week ago, but states he still took aspirin daily after failed stress - was started on IV heparin appreciate cardiology input - spoke with Dr. May - patient requests wanting to be transferred to [facility] Has had a cardiac cath here, a complex disease which required him to be life- flighted to [place] in the past will transfer to accepting doctor - Dr. Willard Barrett IV heparin en route, continue aspirin, statin b-katelyn held due to bradycardia Noted Plavix allergy COPD at baseline ongoing tobacco use; nicotine patch HTN blood pressure stable hold b-katelyn due to bradycardia continue other medications as listed HLD continue statin therapy DVT ppx IV heparin FULL CODE transfer today to [facility] for cardiac cath at tertiary center Discharge planning: acute transfer Total time spent on discharge = 45 minutes This includes examination of the patient, discharge planning, medication reconciliation, and communication with other providers. Discharge Instructions Patient to be transferred acutely to [facility] for cardiac cath at tertiary center He will be transferred by [facility] - IV heparin en route
[2016-08-20 15:25] VITALS: BP 113/80; PULSE 53; TEMP 36.8; O2SAT 94
[2016-08-20 16:00] VITALS: O2SAT 94
[2016-08-20 16:44] VITALS: BP 113/80; PULSE 53; TEMP 36.8; O2SAT 94
[2016-08-20] MEDS ORDERED: SODIUM CHLORIDE 0.9% 1000ML 1,000 ML IV SCH (21:00)
[2016-08-21] MEDS ORDERED: ASPIRIN 81 MG CHEW PO SCH (07:00)
== END 2016-08-20 18:31 | disposition short-term general hospital (02) ==
LOC: ENRESERVDT → ENRESERVTM → C.EDB 10:13 → C.MED 14:37
PROVIDERS: ADMIT Specialist; ATTEND Family Medicine
DX: I25.10 Atherosclerotic heart disease of native coronary artery without angina pectoris (principal); G60.0 Hereditary motor and sensory neuropathy; E03.9 Hypothyroidism, unspecified; E78.5 Hyperlipidemia, unspecified; G47.419 Narcolepsy without cataplexy; M79.7 Fibromyalgia; R00.1 Bradycardia, unspecified; F17.210 Nicotine dependence, cigarettes, uncomplicated; R91.8 Other nonspecific abnormal finding of lung field; I25.2 Old myocardial infarction; I10 Essential (primary) hypertension; K21.9 Gastro-esophageal reflux disease without esophagitis; J44.9 Chronic obstructive pulmonary disease, unspecified; Z95.5 Presence of coronary angioplasty implant and graft; Z83.3 Family history of diabetes mellitus; Z82.49 Family history of ischemic heart disease and other diseases of the circulatory system; Z84.1 Family history of disorders of kidney and ureter; Z79.82 Long term (current) use of aspirin; Z79.899 Other long term (current) drug therapy

== ENCOUNTER 2018-02-21 11:00 | Emergency (ER) | payer OTHER ==
[~2018-02-21] VITALS: Ht 160 cm; Wt 84.6 kg
[~2018-02-21 11:00] MED LIST changes: -AMOX875T PO; -ATOR-14 PO; -AZIT250T4 PO; -EPP3 IM; +EPP3/2 IM; -HYDR-5688 PO; +LISI-461 PO; +PANT40TA PO; -PRED10TA PO
[2018-02-21 11:24] VITALS: TEMP 36.3; Ht 160 cm; Wt 84.6 kg
[2018-02-21] MEDS ORDERED: RANITIDINE HCL 150 MG TAB PO ONE (11:45)
[2018-02-21 11:51] VITALS: O2SAT 97
[2018-02-21] MEDS ORDERED: PRED50TA PO (13:00)
[2018-02-21] MEDS ORDERED: EPP3/2 INJ (13:00)
[2018-02-21 13:20] VITALS: BP 162/92; PULSE 50; O2SAT 100
--- NOTE | 2018-02-21 14:54 | EMERGENCY ROOM VISIT NOTE ---
History Report prepared by Ferny: Rustam Grigsby Under the Supervision of: Dr. Crispin Burns M.D. First contact with patient: 11:33 Chief Complaint: ALLERGIC REACTION Stated Complaint: BEE STING ALLERGY History of Present Illness The patient is a 57 year old male who presents to the Emergency Room with complaints of intermittent hives that occurred about an hour ago after being stung by two yellow jackets on his left forearm and left elbow. Patient states he his allergic to yellow jackets and has a history of similar symptoms. He states his last incident was a couple of years ago. Patient states after the incident it seemed like it was "getting brighter outside". He adds he was feeling numb, itchy, and tingly "all over" with redness in his knee area. Patient states he gave himself an EpiPen shot in his right thigh which relieved his symptoms. He states he "feels good" in the ER other than pain from the bee stings. Patient denies taking Benadryl. Pt denies LOC, headache, fevers, chills , diaphoresis, neck pain, chest pain, breathing difficulties, nausea, vomiting, abdominal pain, back pain, melena, hematochezia, urinary symptoms, numbness, weakness, lymphadenopathy, or other complaints. Source of History: patient Onset: About an hour ago Position: arm (left), knee Quality: tingling, numbness, other (Itchy) Timing: intermittent Modifying Factors (Relieving): other (EpiPen) Review of Systems See HPI for pertinent positives and negatives. A total of ten systems were reviewed and were otherwise negative. Past Medical & Surgical Medical Problems: (1) Acquired hypothyroidism (2) Allergic reaction to bee sting (3) Carpal tunnel syndrome (4) Eofyqfh-Bwlbb-Arhiw disease (5) Chest pain (6) Coronary artery disease (7) Hyperlipidemia (8) MYALGIA AND MYOSITIS NOS (9) Placement of stent in coronary artery (10) Tobacco user Family History Cancer Diabetes mellitus Heart disease Hypertension Kidney stones Social History Smoking Status: Never Smoker Alcohol Use: occasionally Marital Status: Housing Status: lives with family Occupation Status: employed Current/Historical Medications Scheduled Aspirin (Aspirin Ec), 81 MG PO DAILY Cyanocobalamin (Vitamin B-12), 250 MCG PO QAM Fish Oil (Brandon-3), 1 CAP PO QAM Lisinopril (Lisinopril), 10 MG PO DAILY Modafinil (Provigil), 100 MG PO DAILY Nitroglycerin (Nitrostat), 0.4 MG UT PRN Pantoprazole (Protonix), 40 MG PO DAILY Prednisone (Prednisone), 50 MG PO DAILY Scheduled PRN Epinephrine (Epipen), 0.3 MG IM UD PRN for BEE STINGS Epinephrine (Epipen 2-Gareth), 1 DOSE INJ DIRECTED PRN for Allergic Reaction Allergies Coded Allergies: Adhesives (Verified Allergy, Intermediate, HIVES, 02/21/18) Varenicline (Verified Allergy, Intermediate, PERSONALITY CHANGES, 02/21/18) Clopidogrel (Verified Allergy, Mild, 02/21/18) BEE STING (Verified Allergy, Unknown, 02/21/18) Metoprolol (Verified Allergy, Unknown, LOW HEART RATE, 02/21/18) Simvastatin (Verified Adverse Reaction, Unknown, MUSCLE ACHES JOINT PAIN, 02/21/18) Physical Exam Vital Signs Date Time Temp Pulse Resp B/P (MAP) Pulse Ox O2 Delivery O2 Flow Rate FiO2 02/21/18 13:20 50 16 162/92 100 02/21/18 12:53 64 18 97 Room Air 02/21/18 12:23 53 02/21/18 11:51 97 Room Air 02/21/18 11:34 95 Room Air 02/21/18 11:24 36.3 67 20 123/74 96 Room Air Physical Exam GENERAL: Awake, alert, well-appearing, in no distress HENT: Normocephalic, atraumatic. Oropharynx unremarkable. EYES: Normal conjunctiva. Sclera non-icteric. NECK: Supple. No nuchal rigidity. FROM. No masses. RESPIRATORY: Clear to auscultation. No wheezes. No rales. Normal respiratory effort. CARDIAC: Normal rate. Normal rhythm. No murmurs. No rubs. Extremities warm and well perfused. Pulses equal. No JVD. GI: Soft, non-distended. No tenderness to palpation. No rebound or guarding. No masses. RECTAL: Deferred. MUSCULOSKELETAL: Atraumatic. Chest examination reveals no tenderness. The back is symmetrical on inspection without obvious abnormality. There is no CVA tenderness to palpation. No joint edema. LOWER EXTREMITIES: Calves are equal size bilaterally and non-tender. No edema. No discoloration. NEURO: Normal sensorium. No sensory or motor deficits noted. SKIN: Redness to left elbow otherwise no rash or jaundice noted. Medical Decision & Procedures Medications Administered Medications (Trade) Dose Ordered Sig/Raj Route Start Time Stop Time Status Last Admin Dose Admin Prednisone (PredniSONE TAB) 60 mg NOW STAT PO 02/21/18 11:41 02/21/18 11:43 DC 02/21/18 11:48 60 MG Ranitidine HCl (zANTac TAB) 150 mg NOW ONCE PO 02/21/18 11:45 02/21/18 11:46 DC 02/21/18 11:48 150 MG Diphenhydramine HCl (Benadryl Cap) 50 mg NOW ONCE PO 02/21/18 11:45 02/21/18 11:46 DC 02/21/18 11:48 50 MG ED Course 1135: The patient was evaluated in room A12B. A complete history and physical exam was performed. 1141: Prednisone 60mg PO 1145: Benadryl Cap 50mg PO and Zantac Tab 150mg PO 1301: I reevaluated the patient. Discussed results and discharge instructions. He verbalized understanding and agreement. The patient is ready for discharge. Medical Decision Triage Nursing notes reviewed. The patient's presentation and history were concerning for bee stings and a history of allergy. Differential diagnosis includes allergic reaction, urticaria, rash, dermatitis, localized reaction, anaphylaxis, as well as others. The patient was evaluated. He was doing well. His EpiPen injection has seemed to mitigate his signs and symptoms. He was given a dose of oral prednisone, oral Zantac, and oral Benadryl. He was observed for 2 hours. He did very well. He had no recurrence of symptoms whatsoever. He felt well and desired discharge. He did use the last of his 2 pack of epinephrine. He was given a prescription for epinephrine and prednisone. He will use Benadryl and Zantac as needed [id number]. I did ask him to have a follow-up with his primary physician. The patient was educated. Signs and symptoms of worsening problems were reviewed. By the evaluation outlined above other emergent etiologies such as those listed in the differential, as well as others, were deemed relatively unlikely. The patient was educated about the findings as listed above. All questions were answered and the patient was pleased with the treatment. Return instructions were outlined and the patient was discharged in stable condition. The patient was referred to his PCP for follow-up for a recheck of the current condition. Medication Reconcilliation Current Medication List: was personally reviewed by me Blood Pressure Screening Patient's blood pressure: Elevated blood pressure Blood pressure disposition: Elevated BP felt to be situational Impression Primary Impression: Allergic reaction Scribe Attestation The scribe's documentation has been prepared under my direction and personally reviewed by me in its entirety. I confirm that the note above accurately reflects all work, treatment, procedures, and medical decision making performed by me. Departure Information Dispostion Home / Self-Care Prescriptions Prednisone (Prednisone) 50 Mg Tab 50 MG PO DAILY for 3 Days, #3 TAB Prov: Crispin Burns MD 02/21/18 Epinephrine (EPIPEN 2-GARETH) 0.3 Mg Inj 1 DOSE INJ DIRECTED Y for Allergic Reaction, #1 BOX 1 Refill Prov: Crispin Burns MD 02/21/18 Referrals Chelsy Bean DO (PCP) Forms HOME CARE DOCUMENTATION FORM, IMPORTANT VISIT INFORMATION Patient Instructions My [facility] Additional Instructions ALLERGIC REACTION INSTRUCTIONS: DO NOT drive, drink alcohol, operate machinery, or perform dangerous activities today. You were given medications in the ER that can affect your ability to safely function or operate a vehicle. Epi-Pen: Use one injection as instructed for severe allergic reactions associated with shortness of breath, difficulty breathing, or throat or tongue swelling. If you use this injection call 911 or proceed immediately to the nearest Emergency Room. Prednisone 50mg: Once daily until the prescription is finished. It is best to take this earlier in the day as some patients note occasional difficulty falling asleep when taken in the late evening. Diphenhydramine(Benadryl) 25mg: use 25 to 50 mg every six hours for swelling, itching, or hives. This medication is sedating and will cause drowsiness. Avoid alcohol, operating machinery or dangerous equipment, working on ladders or roofs, DRIVING, or situations where being under the influence may be dangerous. Zantac 75: Take two pills twice a day along with Benadryl as needed for swelling , itching, or hives. Most people know this for its affect on the stomach, but it also acts similar to, but less potent than Benadryl for allergic reactions. Both the Benadryl and the Zantac are available [id number]. Continue current medications. Return to the emergency department for worsening of your rash, swelling of your face, lips, tongue, or throat, difficulty breathing, vomiting, or as needed. Follow-up with your primary care physician in 2 to 3 days for a recheck of your current condition.
== END 2018-02-21 13:15 | disposition home or self-care (01) ==
LOC: C.EDB 11:01 → C.EDA 13:15
DX: T63.441A Toxic effect of venom of bees, accidental (unintentional), initial encounter (principal); I25.10 Atherosclerotic heart disease of native coronary artery without angina pectoris; Z79.82 Long term (current) use of aspirin; Z79.899 Other long term (current) drug therapy; Z91.048 Other nonmedicinal substance allergy status; Z88.8 Allergy status to other drugs, medicaments and biological substances